=== PATIENT | male | born 1995 | race Caucasian/White ===

== ENCOUNTER 2024-08-31 05:57 | Emergency (ER) | payer OTHER, SELFPAY ==
[2024-08-31] VITALS (25 sets, daily range): BP systolic 113–133; BP diastolic 77–98; PULSE 81–105; TEMP 37.3; O2SAT 94–97; BMI 50.9
--- NOTE | 2024-08-31 07:08 | ECG_ITS ---
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
--- NOTE | 2024-08-31 07:08 | XR_ITS ---
[address] [address] Patient Name: ASTON ARCE MRN: [id number] date: 1995 Sex: M Assigned Patient Location: ER Current Patient Location: ED.MAIN Accession/Order Number: [id number] Exam Date: 08/31/2024 07:36 Report Date: 08/31/2024 07:53 At the request of: MIKE NGUYỄN Procedure: XR chest 1V EXAMINATION: XR chest 1V HISTORY: chest pain COMPARISON: None TECHNIQUE: AP portable FINDINGS: LUNGS: No significant pulmonary parenchymal abnormalities. VASCULATURE: No increased pulmonary vasculature. PLEURA: No pneumothorax, effusion, or pleural thickening. CARDIAC: No cardiomegaly or cardiac silhouette abnormality. MEDIASTINUM: No visible mass or adenopathy. BONES: No fracture or visible bone lesion. OTHER: Negative. XR/XR chest 1V IMPRESSION: No acute cardiopulmonary process Electronically authenticated by: FRANCO ACHARYA Date: 08/31/2024 07:53
[2024-08-31] MEDS: KETOROLAC TROMETHAMINE 30 MG/ML VIAL 15 MG IVP (07:20)
[2024-08-31 07:30] LABS: Basophils Percent Auto 0.1 % (0.2-2.0); Eosinophils Absolute Auto 0.1 10^3/uL (0.0-0.7); Eosinophils Percent Auto 0.7 % (0.9-7.0); Hematocrit 46.6 % (42.0-54.0); Hemoglobin 16.6 g/dL (14.0-18.0); Immature Granulocytes Abs Auto 0.01 10^3/uL (0.00-0.03); Immature Granulocytes Pct Auto 0.1 % (0.0-0.5); Lymphocytes Absolute Auto 1.1 10^3/uL (1.2-3.8); Lymphocytes Percent Auto 13.3 % (20.5-60.0); Mean Corpuscular HGB Conc 35.6 g/dL (29.9-35.2); Mean Corpuscular Hemoglobin 28.7 pg (25.9-34.0); Mean Corpuscular Volume 80.5 fL (80.0-94.0); Mean Platelet Volume 9.6 fL (9.5-13.5); Monocytes Absolute Auto 0.8 10^3/uL (0.3-0.8); Monocytes Percent Auto 9.4 % (1.7-12.0); Neutrophils Absolute Auto 6.2 10^3/uL (1.4-6.5); Neutrophils Percent Auto 76.4 % (43.0-75.0); Platelet Count 179 10^3/uL (150-450); Red Blood Count 5.79 10^6/uL (4.70-6.10); Red Cell Distribution Width 12.5 % (11.0-15.0); White Blood Count 8.2 10^3/uL (4.0-11.0)
[2024-08-31 07:50] LABS: Alanine Aminotransferase 51 U/L (16-63); Albumin Globulin Ratio 1.1; Albumin Level 3.9 g/dL (3.4-5.0); Alkaline Phosphatase 50 U/L (46-116); Anion Gap 15.7; Aspartate Amino Transferase 26 U/L (15-37); BUN Creatinine Ratio 15.1; Bilirubin Total 7.2 mg/dL (0.2-1.0); Calcium 8.2 mg/dL (8.5-10.1); Carbon Dioxide 25.7 mmol/L (21.0-32.0); Chloride 99 mmol/L (98-107); Estimated GFR (African America >60 (>=60 mL/min/1.73m^2); Estimated GFR (Non-African Ame >60 (>=60 mL/min/1.73m^2); Globulin 3.4 g/dL; Glucose 138 mg/dL (74-106); Magnesium 1.7 mg/dL (1.8-2.4); Potassium 3.4 mmol/L (3.5-5.1); Sodium 137 mmol/L (136-145); Total Protein 7.3 g/dL (6.4-8.2)
[2024-08-31 07:59] LABS: INR 1.09; Prothrombin Time 11.5 sec (9.0-11.6)
[2024-08-31 08:06] LABS: D Dimer <0.19 mg/L FEU (<=0.59)
[2024-08-31] MEDS: MAGNESIUM OXIDE 400 MG TABLET PO (08:34)
[2024-08-31] MEDS: FAMOTIDINE/PF 20 MG/2 ML VIAL IV (08:34)
--- NOTE | 2024-08-31 09:04 | ED_ITS ---
HPI - Chest Pain General Chief Complaint: Chest Pain Stated Complaint: CHEST PAIN Time Seen by Provider: 08/31/24 07:02 Mode of arrival: walk-in Limitations: no limitations Related Data Previous Rx's ?Medication ?Instructions ?Recorded famotidine 20 mg tablet (Pepcid) 20 mg PO BID #10 tabs 08/31/24 meloxicam 15 mg tablet 15 mg PO DAILY PRN pain #10 tabs 08/31/24 Allergies Allergy/AdvReac Type Severity Reaction Status Date / Time No Known Drug Allergies Allergy Verified 08/31/24 06:33 PFSH PFSH Social History Little interest or pleasure in doing things: not at all Feeling down, depressed, or hopeless: not at all Exam Constitutional Vital Signs, click to edit/add: Last Vital Signs Temp 99.1 F 08/31/24 06:26 Pulse 100 H 08/31/24 06:26 Resp 16 08/31/24 06:26 BP 133/98 H 08/31/24 06:26 Pulse Ox 95 08/31/24 06:26 O2 Del Method Room Air 08/31/24 06:26 Course Vital Signs Vital signs: Vital Signs Temperature 99.1 F 08/31/24 06:26 Pulse Rate 100 H 08/31/24 06:26 Respiratory Rate 16 08/31/24 06:26 Blood Pressure 133/98 H 08/31/24 06:26 Pulse Oximetry 95 08/31/24 06:26 Oxygen Delivery Method Room Air 08/31/24 06:26 Temperature 99.1 F 08/31/24 06:26 Pulse Rate 100 H 08/31/24 06:26 Respiratory Rate 16 08/31/24 06:26 Blood Pressure 133/98 H 08/31/24 06:26 Pulse Oximetry 95 08/31/24 06:26 Oxygen Delivery Method Room Air 08/31/24 06:26 MDM - Chest Pain Lab Data Labs: Lab Results 08/31/24 Range/Units 07:19 WBC 8.2 (4.0-11.0) 10^3/uL RBC 5.79 (4.70-6.10) 10^6/uL Hgb 16.6 (14.0-18.0) g/dL Hct 46.6 (42.0-54.0) % MCV 80.5 (80.0-94.0) fL MCH 28.7 (25.9-34.0) pg MCHC 35.6 H (29.9-35.2) g/dL RDW 12.5 (11.0-15.0) % Plt Count 179 (150-450) 10^3/uL MPV 9.6 (9.5-13.5) fL Neut % (Auto) 76.4 H (43.0-75.0) % Lymph % (Auto) 13.3 L (20.5-60.0) % [place] % (Auto) 9.4 (1.7-12.0) % Eos % (Auto) 0.7 L (0.9-7.0) % Baso % (Auto) 0.1 L (0.2-2.0) % Neut # (Auto) 6.2 (1.4-6.5) 10^3/uL Lymph # (Auto) 1.1 L (1.2-3.8) 10^3/uL [place] # (Auto) 0.8 (0.3-0.8) 10^3/uL Eos # (Auto) 0.1 (0.0-0.7) 10^3/uL Baso # (Auto) 0.0 (0.0-0.1) 10^3/uL Abs Immat Gran (auto) 0.01 (0.00-0.03) 10^3/uL Imm/Tot Granulo (auto) 0.1 (0.0-0.5) % PT 11.5 (9.0-11.6) sec INR 1.09 D-Dimer <0.19 (<=0.59) mg/L FEU Sodium 137 (136-145) mmol/L Potassium 3.4 L (3.5-5.1) mmol/L Chloride 99 (98-107) mmol/L Carbon Dioxide 25.7 (21.0-32.0) mmol/L Anion Gap 15.7 BUN 18.0 (7.0-18.0) mg/dL Creatinine 1.19 (0.70-1.30) mg/dL Est GFR ( Amer) >60 (>=60 mL/min/1.73m^2) Est GFR (Non-Af Amer) >60 (>=60 mL/min/1.73m^2) BUN/Creatinine Ratio 15.1 Glucose 138 H (74-106) mg/dL Calcium 8.2 L (8.5-10.1) mg/dL Magnesium 1.7 L (1.8-2.4) mg/dL Total Bilirubin 7.2 H (0.2-1.0) mg/dL AST 26 (15-37) U/L ALT 51 (16-63) U/L Alkaline Phosphatase 50 (46-116) U/L Troponin I High Sens 5.0 (4.0-76.1) pg/mL Total Protein 7.3 (6.4-8.2) g/dL Albumin 3.9 (3.4-5.0) g/dL Globulin 3.4 g/dL Albumin/Globulin Ratio 1.1 Discharge Plan Discharge Chief Complaint: Chest Pain Clinical Impression: Atypical chest pain, Hypomagnesemia Patient Disposition: Home, Self-Care Time of Disposition Decision: 09:02 Condition: Good Prescriptions / Home Meds: New meloxicam 15 mg tablet 15 mg PO DAILY PRN (Reason: pain ) Qty: 10 0RF famotidine [Pepcid] 20 mg tablet 20 mg PO BID Qty: 10 0RF Print Language: Marshallese Instructions: Chest Pain (ED), Hypomagnesemia (ED) Referrals: Physician,Non-Staff, MD [Primary Care Provider] - 1 week
--- NOTE | 2024-08-31 09:07 | ED.CHESTPAI1 ---
HPI - Chest Pain General Chief Complaint: Chest Pain Stated Complaint: CHEST PAIN Time Seen by Provider: 08/31/24 07:02 Mode of arrival: walk-in Limitations: no limitations History of Present Illness HPI narrative: The patient is a 28-year-old male with no significant known past medical history, went to the ER after he just over the weekend and he is coming on the Saturday just has been having nausea vomiting without exposures for possible viral illness, he mentioned that today he woke up having this left-sided chest pain that comes mostly whenever he is coughing or taking a deep breath, mentioned some radiation to his arms and numbness in his fingers, The patient denies any neck pain any back pain he also denies any chest pain that is continuous the pain is mostly whenever he take a deep breath or moves The patient denies any difficulty breathing denies any nausea vomiting at the moment He also denies any diarrhea Related Data Previous Rx's ?Medication ?Instructions ?Recorded famotidine 20 mg tablet (Pepcid) 20 mg PO BID #10 tabs 08/31/24 meloxicam 15 mg tablet 15 mg PO DAILY PRN pain #10 tabs 08/31/24 Allergies Allergy/AdvReac Type Severity Reaction Status Date / Time No Known Drug Allergies Allergy Verified 08/31/24 06:33 Review of Systems ROS Status of ROS 10 or more systems reviewed and unremarkable except as noted in history and below PFSH PFSH Social History Little interest or pleasure in doing things: not at all Feeling down, depressed, or hopeless: not at all Exam Narrative Exam Narrative: Nurses notes and vital signs reviewed and patient is not hypoxic. General: Well-appearing and in no apparent distress. Skin: Warm, dry, no pallor noted. No rash. Head: Normocephalic, atraumatic. Neck: Supple, non-tender. Eye: Pupils are equal, round and EOMI. No scleral icterus. Ears, Nose, Mouth, and Throat: TM are clear, no nasal mucosal hypertrophy. Oral mucosa is moist, no posterior oropharynx erythema, uvula is mid-line Cardiovascular: Regular Rate and Rhythm without murmur, gallop or rub. Respiratory: No accessory muscle use or respiratory distress. Lungs are clear to auscultation, no wheezing, rales or rhonchi Chest Wall: no tenderness Back: No midline thoracic or lumbar vertebral tenderness. No CVA tenderness Musculoskeletal: normal ROM, no calf or popliteal tenderness, no lower extremity edema/swelling GI: Abdomen is soft, non-distended. Normal bowel sounds. No masses appreciated. No tenderness to palpation. No rebound, guarding, or rigidity noted. Neurological: A&O x4. No cranial nerve dysfunction observed. No truncal ataxia. Moves all extremities. Sensation intact. Psychiatric: Cooperative and interactive. Normal mood and affect. Constitutional Vital Signs, click to edit/add: Last Vital Signs Temp 99.1 F 08/31/24 06:26 Pulse 100 H 08/31/24 06:26 Resp 16 08/31/24 06:26 BP 133/98 H 08/31/24 06:26 Pulse Ox 95 08/31/24 06:26 O2 Del Method Room Air 08/31/24 06:26 Course Vital Signs Vital signs: Vital Signs Temperature 99.1 F 08/31/24 06:26 Pulse Rate 100 H 08/31/24 06:26 Respiratory Rate 16 08/31/24 06:26 Blood Pressure 133/98 H 08/31/24 06:26 Pulse Oximetry 95 08/31/24 06:26 Oxygen Delivery Method Room Air 08/31/24 06:26 Temperature 99.1 F 08/31/24 06:26 Pulse Rate 100 H 08/31/24 06:26 Respiratory Rate 16 08/31/24 06:26 Blood Pressure 133/98 H 08/31/24 06:26 Pulse Oximetry 95 08/31/24 06:26 Oxygen Delivery Method Room Air 08/31/24 06:26 MDM - Chest Pain MDM Narrative Medical decision making narrative: The patient EKG was showing sinus rhythm with a heart rate of [address] elevation or any signs of possible coronary artery disease The patient blood workup shows a troponin that was negative in addition to a point lesion 1.7 He was provided in the ER with Toradol and Pepcid after which she was feeling much better he also was provided with p.o. magnesium Patient was discharged home with supportive care instructed in addition to hydration and resting The patient chest x-ray showed no acute acute pathology I did explain to him that right now acid reflux can cause this specially that he recently was having a nausea and vomiting over the weekend The patient is to follow up with primary care physician in next 2-3 days or to return to the emergency department should any of the signs or symptoms worsen or new symptoms develop. The patient agrees with the following Diagnosis and Treatment plan and the patient will be discharged home. Lab Data Labs: Lab Results 08/31/24 Range/Units 07:19 WBC 8.2 (4.0-11.0) 10^3/uL RBC 5.79 (4.70-6.10) 10^6/uL Hgb 16.6 (14.0-18.0) g/dL Hct 46.6 (42.0-54.0) % MCV 80.5 (80.0-94.0) fL MCH 28.7 (25.9-34.0) pg MCHC 35.6 H (29.9-35.2) g/dL RDW 12.5 (11.0-15.0) % Plt Count 179 (150-450) 10^3/uL MPV 9.6 (9.5-13.5) fL Neut % (Auto) 76.4 H (43.0-75.0) % Lymph % (Auto) 13.3 L (20.5-60.0) % [place] % (Auto) 9.4 (1.7-12.0) % Eos % (Auto) 0.7 L (0.9-7.0) % Baso % (Auto) 0.1 L (0.2-2.0) % Neut # (Auto) 6.2 (1.4-6.5) 10^3/uL Lymph # (Auto) 1.1 L (1.2-3.8) 10^3/uL [place] # (Auto) 0.8 (0.3-0.8) 10^3/uL Eos # (Auto) 0.1 (0.0-0.7) 10^3/uL Baso # (Auto) 0.0 (0.0-0.1) 10^3/uL Abs Immat Gran (auto) 0.01 (0.00-0.03) 10^3/uL Imm/Tot Granulo (auto) 0.1 (0.0-0.5) % PT 11.5 (9.0-11.6) sec INR 1.09 D-Dimer <0.19 (<=0.59) mg/L FEU Sodium 137 (136-145) mmol/L Potassium 3.4 L (3.5-5.1) mmol/L Chloride 99 (98-107) mmol/L Carbon Dioxide 25.7 (21.0-32.0) mmol/L Anion Gap 15.7 BUN 18.0 (7.0-18.0) mg/dL Creatinine 1.19 (0.70-1.30) mg/dL Est GFR ( Amer) >60 (>=60 mL/min/1.73m^2) Est GFR (Non-Af Amer) >60 (>=60 mL/min/1.73m^2) BUN/Creatinine Ratio 15.1 Glucose 138 H (74-106) mg/dL Calcium 8.2 L (8.5-10.1) mg/dL Magnesium 1.7 L (1.8-2.4) mg/dL Total Bilirubin 7.2 H (0.2-1.0) mg/dL AST 26 (15-37) U/L ALT 51 (16-63) U/L Alkaline Phosphatase 50 (46-116) U/L Troponin I High Sens 5.0 (4.0-76.1) pg/mL Total Protein 7.3 (6.4-8.2) g/dL Albumin 3.9 (3.4-5.0) g/dL Globulin 3.4 g/dL Albumin/Globulin Ratio 1.1 Discharge Plan Discharge Chief Complaint: Chest Pain Clinical Impression: Atypical chest pain, Hypomagnesemia Patient Disposition: Home, Self-Care Time of Disposition Decision: 09:02 Condition: Good Prescriptions / Home Meds: New meloxicam 15 mg tablet 15 mg PO DAILY PRN (Reason: pain ) Qty: 10 0RF famotidine [Pepcid] 20 mg tablet 20 mg PO BID Qty: 10 0RF Print Language: Montenegrin Instructions: Chest Pain (ED), Hypomagnesemia (ED) Referrals: Physician,Non-Staff, MD [Primary Care Provider] - 1 week
== END 2024-08-31 09:11 | disposition home or self-care (01) ==
PROVIDERS: Emergency Provider Emergency Medicine
DX: R07.89 Other chest pain (principal); E83.42 Hypomagnesemia
CPT/HCPCS: 36415; 71045; 80053; 83735; 84484; 85025; 85378; 85610; 93005; 96374; 96375; 99285; J1885; J3490